=== PATIENT | male | born 1970 | race American Indian/Alaskan Native ===

== ENCOUNTER 2021-06-11 21:47 | Emergency (ER) | payer OTHER ==
[2021-06-12] MEDS ORDERED: ACETAMINOPHEN 325 MG TAB PO ONE (00:11)
--- NOTE | 2021-06-12 01:46 | XRay Report ---
CHEST 2 VIEWS INDICATION: cough and fever. COMPARISON: None. FINDINGS: Support devices: None. Heart: Within normal limits. Lungs/Pleura: Patchy opacity at the mid/lower zones. No significant pleural effusion. IMPRESSION: Bilateral pneumonia. Signer Name: Jose Miranda MD Signed: 06/12/2021 1:42 AM Workstation Name: [id number]
[2021-06-12] MEDS ORDERED: LIDOCAINE-MPF (1%) 10 MG/1 ML VIAL 5 ML INFILTRATI ONE (03:48)
[2021-06-12] MEDS ORDERED: predniSONE 20 MG TAB PO ONE (03:48)
[2021-06-12] MEDS ORDERED: AZITHROMYCIN 250 MG TAB PO ONE (03:48)
[2021-06-12] MEDS ORDERED: BENZONATATE 100 MG CAP PO ONE (03:49)
--- NOTE | 2021-06-12 06:07 | Emergency Department Report ---
- General Chief Complaint: Fever Stated Complaint: COUGHING Source: patient Mode of arrival: Ambulatory Limitations: No Limitations - History of Present Illness Initial Comments: Patient is a 51-year-old -[place] male with no past medical history who presents to the ED with complaint of acute onset persistent nasal and sinus congestion, frontal sinus pressure, sore throat, diffuse body aches and pains, persistent dry cough with intermittent fever for the last 2 days. Patient states that he received his initial COVID-19 vaccination about 6 days ago. Patient however states that no one else at home is had similar symptoms. Patient states that in the last 8 hours, fever has been persistent with diffuse body aches and pains. Patient denies dizziness, syncope, nausea and vomiting or diarrhea, abdominal pain, chest pain, dysuria, urinary frequency and urgency or hematuria. MD Complaint: fever, cough, rhinorrhea, nasal congestion, sinus pain -: Sudden, days(s) (4) Severity: moderate Severity scale (0 -10): 5 Quality: aching Consistency: constant Improves With: nothing Worsens With: nothing Associated Symptoms: denies other symptoms, fever, chills, myalgias, headache, rhinorrhea, nasal congestion, cough, shortness of breath. denies: stiff neck, chest pain, abdominal pain, nausea, vomiting, diarrhea, dysuria, rash, confusion, weight loss, epistaxis, hoarseness, ear pain, other Treatments Prior to Arrival: none - Related Data Previous Rx's Medication Instructions Recorded Last Taken Type Albuterol Sulfate [Proventil Hfa] 1 - 2 puff IH Q6H PRN #1 hfa.aer.ad 06/12/21 Unknown Rx Ascorbic Acid [Vitamin C] 1,000 mg PO Q12H #30 tablet 06/12/21 Unknown Rx Azithromycin [Zithromax Z-IRIS] 250 mg PO DAILY #6 tablet 06/12/21 Unknown Rx Benzonatate [Tessalon Perles] 100 mg PO Q8HR #30 capsule 06/12/21 Unknown Rx Cetirizine HCl [Zyrtec 10mg tab] 10 mg PO DAILY #30 tablet 06/12/21 Unknown Rx Ibuprofen [Motrin] 800 mg PO Q8HR PRN #30 tablet 06/12/21 Unknown Rx Allergies Allergy/AdvReac Type Severity Reaction Status Date / Time No Known Allergies Allergy Unverified 06/12/21 00:10 ED Review of Systems ROS: Stated complaint: COUGHING Other details as noted in HPI Constitutional: chills, fever, malaise Eyes: denies: eye pain, eye discharge, vision change ENT: throat pain, congestion. denies: ear pain Respiratory: cough. denies: shortness of breath, wheezing Cardiovascular: denies: chest pain, palpitations Endocrine: no symptoms reported Gastrointestinal: denies: abdominal pain, nausea, vomiting, diarrhea Genitourinary: denies: urgency, dysuria Musculoskeletal: denies: back pain, joint swelling, arthralgia Skin: denies: rash, lesions Neurological: headache. denies: weakness, paresthesias Psychiatric: denies: anxiety, depression Hematological/Lymphatic: denies: easy bleeding, easy bruising ED Past Medical Hx - Past Medical History Previous Medical History?: No - Surgical History Past Surgical History?: No - Social History Smoking Status: Never Smoker Substance Use Type: None - Medications Home Medications: Home Medications Medication Instructions Recorded Confirmed Last Taken Type Albuterol Sulfate [Proventil Hfa] 1 - 2 puff IH Q6H PRN #1 hfa.aer.ad 06/12/21 Unknown Rx Ascorbic Acid [Vitamin C] 1,000 mg PO Q12H #30 tablet 06/12/21 Unknown Rx Azithromycin [Zithromax Z-IRIS] 250 mg PO DAILY #6 tablet 06/12/21 Unknown Rx Benzonatate [Tessalon Perles] 100 mg PO Q8HR #30 capsule 06/12/21 Unknown Rx Cetirizine HCl [Zyrtec 10mg tab] 10 mg PO DAILY #30 tablet 06/12/21 Unknown Rx Ibuprofen [Motrin] 800 mg PO Q8HR PRN #30 tablet 06/12/21 Unknown Rx ED Physical Exam - General Limitations: No Limitations General appearance: alert, in no apparent distress - Head Head exam: Present: atraumatic, normocephalic, normal inspection - Eye Eye exam: Present: normal appearance, PERRL, EOMI Pupils: Present: normal accommodation - ENT ENT exam: Present: mucous membranes moist, TM's normal bilaterally, normal external ear exam, other (Grossly congested nasal passages; mild erythematous or opharynx and tonsils) - Neck Neck exam: Present: normal inspection, full ROM - Respiratory Respiratory exam: Present: normal lung sounds bilaterally. Absent: respiratory distress, wheezes, rales, rhonchi, chest wall tenderness, accessory muscle use, decreased breath sounds - Cardiovascular Cardiovascular Exam: Present: normal rhythm, tachycardia, normal heart sounds. Absent: systolic murmur, diastolic murmur, rubs, gallop - GI/Abdominal GI/Abdominal exam: Present: soft, normal bowel sounds. Absent: tenderness, guarding, rebound, hyperactive bowel sounds, hypoactive bowel sounds, organomegaly - Extremities Exam Extremities exam: Present: normal inspection, full ROM, normal capillary refill - Back Exam Back exam: Present: normal inspection, full ROM. Absent: tenderness, CVA tenderness (R), CVA tenderness (L), muscle spasm, paraspinal tenderness, vertebral tenderness - Neurological Exam Neurological exam: Present: alert, oriented X3, CN II-XII intact, normal gait, reflexes normal - Psychiatric Psychiatric exam: Present: normal affect, normal mood - Skin Skin exam: Present: warm, dry, intact, normal color. Absent: rash ED Course Vital Signs 06/12/21 06/12/21 00:05 03:53 Temperature 103.2 F H 98.9 F Pulse Rate 104 H 79 Respiratory 20 16 Rate Blood Pressure 140/85 Blood Pressure 142/79 [Right] O2 Sat by Pulse 95 96 Oximetry ED Medical Decision Making - Radiology Data Radiology results: report reviewed, [place] [address] XRay Report Signed Patient: LEATHA MCDOWELL MR#: [id number] : 1970 Acct:[id number] Age/Sex: 51 / M ADM Date: 06/11/21 Loc: ED Attending Dr: Ordering Physician: SANCHEZ SOL MD Date of Service: 06/12/21 Procedure(s): XR chest routine 2V Accession Number(s): [id number] cc: SANCHEZ SOL MD Fluoro Time In Minutes: CHEST 2 VIEWS INDICATION: cough and fever. COMPARISON: None. FINDINGS: Support devices: None. Heart: Within normal limits. Lungs/Pleura: Patchy opacity at the mid/lower zones. No significant pleural effusion. IMPRESSION: Bilateral pneumonia. Signer Name: Jose Miranda MD Signed: 06/12/2021 1:42 AM Workstation Name: [id number] Transcribed By: ES Dictated By: Jose Miranda MD Electronically Authenticated By: Jose Miranda MD Signed Date/Time: 06/12/21141 DD/ 0 TD/TT: Print Cancel - Medical Decision Making This is a 51-year-old -[place] male with no past medical history who presents to the ED with complaint of acute onset persistent nasal and sinus congestion, frontal sinus pressure, sore throat, diffuse body aches and pains, persistent dry cough with intermittent fever for the last 2 days. Patient states that he received his initial COVID-19 vaccination about 6 days ago. Patient however states that no one else at home is had similar symptoms. Patient states that in the last 8 hours, fever has been persistent with diffuse body aches and pains. In the ED, patient is alert and oriented x3 and is not in any distress but tachycardic and febrile in triage. Patient was treated for fe rosana in the ED and chest x-ray showed patchy opacity at the mid/lower zones consistent with bilateral pneumonia. There is however no significant pleural effusion. Patient received antibiotics in the ED, also given pain medications and cough medication as well as steroids. On reevaluation, patient vital signs are stable, fever and tachycardia resolved. Patient felt better, and was discharged home on medications and advised to ensure that he gets tested for COVID-19 viral infection in any of the outpatient facilities and if positive to self quarantine at home while taking medications. Patient was also advised to return to the ED immediately if symptoms get worse, otherwise follow-up with your primary care physician in 7 to 10 days for reevaluation. - Differential Diagnosis Pneumonia; COVID-19; URI; bronchitis; pharyngitis; Critical care attestation.: If time is entered above; I have spent that time in minutes in the direct care of this critically ill patient, excluding procedure time. ED Disposition Clinical Impression: Acute upper respiratory infection, Suspected 2019-nCoV infection, Bronchitis due to 2019-nCoV Community acquired pneumonia Qualifiers: Laterality: right Lung location: middle lobe of lung Qualified Code(s): J18.9 - Pneumonia, unspecified organism Disposition: HOME / SELF CARE / HOMELESS Is pt being admited?: No Does the pt Need Aspirin: No Condition: Stable Instructions: Bacterial Pneumonia (ED), Chronic Bronchitis (ED), Upper Res piratory Infection, Adult, [id number], Cough, Adult, [id number], COVID-19: How to Protect Yourself and Others - CDC, Community-Acquired Pneumonia, Adult, [id number] Additional Instructions: The chest x-ray shows patchy opacity at the mid/lower zones consistent with bilateral pneumonia, which could be due to COVID-19 viral infection or bacterial infection. Therefore take medications with food, drink plenty of fluids and follow-up with your primary care physician in 5 to 7 days for reevaluation. Ensure that you get tested for COVID-19 viral infection in any of the outpatient facilities. If positive, self quarantine for 10 days as required while taking medications. Return to the ED immediately if symptoms get worse. Prescriptions: Ibuprofen [Motrin] 800 mg PO Q8HR PRN #30 tablet PRN Reason: Pain , Severe (7-10) Albuterol Sulfate [Proventil Hfa] 1 - 2 puff IH Q6H PRN #1 hfa.aer.ad PRN Reason: Shortness Of Breath Benzonatate [Tessalon Perles] 100 mg PO Q8HR #30 capsule Ascorbic Acid [Vitamin C] 1,000 mg PO Q12H #30 tablet Azithromycin [Zithromax Z-IRIS] 250 mg PO DAILY #6 tablet Cetirizine HCl [Zyrtec 10mg tab] 10 mg PO DAILY #30 tablet Referrals: [facility] [place] [Provider Group] - 7-10 days Forms: Work/School Release Form(ED) Time of Disposition: 06:06 Print Language: FAROESE
[2021-06-12 07:30] VITALS: BP 140/82
== END 2021-06-12 07:30 | disposition home or self-care (01) ==
LOC: ED 21:47
DX: U07.1 COVID-19 (principal); J40 Bronchitis, not specified as acute or chronic; J06.9 Acute upper respiratory infection, unspecified; J18.9 Pneumonia, unspecified organism; Z79.899 Other long term (current) drug therapy
CPT/HCPCS: 71046; 96372; 99283; J0696; J7512